=== PATIENT | male | born 1945 | race Caucasian/White ===

== ENCOUNTER 2018-08-10 12:57 | Outpatient (CLI) | payer MEDICARE ==
--- NOTE | 2018-08-10 15:32 | ULT ---
ULTRASOUND RETROPERITONEUM COMPLETE: (RENAL) DATE: 08/10/2018. HISTORY: A 73-year-old male with: R35.1, nocturia. N40.0, benign prostatic hyperplasia, unspecified whether lower urinary tract symptoms present. Z87.442, history of kidney stones. FINDINGS: The right kidney measures 11 x 6.5 x 6 cm. The left kidney measures 11 x 5.5 x 6.5 cm. Both kidneys have normal cortical thickness and normal cortical echogenicity. There is no hydronephrosis. Curso ry images of the urinary bladder demonstrate no gross abnormality. There is a 1.2 cm round parenchym al cyst at the lower pole parenchyma of the left kidney. Prostate gland measures approximately 5.2 x 2.7 x 3.8 cm. It does not indent the bladder base. Bladder volume is 85 mL at the time of this scan . IMPRESSION: 1. Small left renal cyst. 2. No other abnormalities of the kidneys identified. shayna [] POS: IGNACIA
== END 2018-08-10 12:58 | disposition home or self-care (01) ==
LOC: BICULT 12:57
PROVIDERS: ATTEND Urology
DX: N40.0 Benign prostatic hyperplasia without lower urinary tract symptoms (principal); R35.1 Nocturia; N28.1 Cyst of kidney, acquired; Z87.442 Personal history of urinary calculi
CPT/HCPCS: 76770

== ENCOUNTER 2019-06-24 13:20 | Outpatient (CLI) | payer MEDICARE ==
--- NOTE | 2019-06-24 13:40 | RAD ---
XR Chest Pa Lat STANDARD HISTORY: Cough and wheezing COMPARISON: 05/18/2017 FINDINGS: The heart size is normal. The lungs are well expanded without focal areas of consolidation, pneumothorax or pleural effusions. IMPRESSION: No radiographic evidence of acute cardiopulmonary process.
== END 2019-06-24 13:21 | disposition home or self-care (01) ==
LOC: BICRAD 13:20
PROVIDERS: ATTEND Internal Medicine
DX: R05 Cough (principal)
CPT/HCPCS: 71046

== ENCOUNTER 2020-06-16 06:34 | Outpatient (CLI) | payer MEDICARE ==
[2020-06-16 11:48] LABS: Hemoglobin 14.8 g/dL (14.0-18.0); Mean Corpuscular HGB CONC 33.5 G/DL (32.0-36.0); Mean Corpuscular Hemoglobin 31.6 PG (27.0-33.0); Mean Corpuscular Volume 94.4 fl (80.0-100.0); Mean Platelet Volume 10.3 fl (7.4-10.4); Platelet Count 262 10x3/uL (130-400); Red Blood Cell (RBC) Count 4.68 10x6/uL (4.40-5.80); White Blood Cell (WBC) Count 7.9 10x3/uL (4.5-11.0)
[2020-06-16 11:56] LABS: Bilirubin Neg (Negative); Blood, Urine Negative (Negative); Clarity Clear (Clear); Glucose, Urine (Dipstick) Normal (Negative); Ketone, Urine Negative (Negative); Leukocyte Negative (Negative); Nitrite Negative (Negative); Protein, Urine (Dipstick) Negative (Neg-Trace); Urobilinogen Normal mg/dL (Less than 2); pH, Urine 6.5 (5.0-9.0)
[2020-06-16 12:11] LABS: INR-International Normal Ratio 1.1; PTT 30.2 sec (22.0-33.0); Prothrombin Time 11.3 sec (9.5-12.1)
[2020-06-16 12:21] LABS: Anion Gap 15 mmol/L (10-20); BUN (Urea Nitrogen) 21 mg/dL (8.4-25.7); Calc. Creatinine Clearance 0 mL/min (70-130); Calcium 9.5 mg/dL (7.8-10.44); Carbon Dioxide 29 mmol/L (23-31); Chloride 102 mmol/L (98-107); Glucose 79 mg/dL (83-110); Potassium 4.5 mmol/L (3.5-5.1); Sodium 141 mmol/L (136-145)
[2020-06-16 12:37] LABS: RBC/HPF None Seen HPF (0-3); WBC/HPF None Seen HPF (0-3)
[2020-06-16 12:38] LABS: Bacteria/HPF None Seen HPF (None Seen); Squamous Epithelial 0-3 HPF (0-3)
--- NOTE | 2020-06-16 16:15 | EKG ---
Test Reason : Blood Pressure : / mmHG Vent. Rate : 073 BPM Atrial Rate : 073 BPM P-R Int : 152 ms QRS Dur : 094 ms QT Int : 362 ms P-R-T Axes : 062 070 -11 degrees QTc Int : 398 ms Normal sinus rhythm Incomplete right bundle branch block Minimal voltage criteria for LVH, may be normal variant Nonspecific T wave abnormality Abnormal ECG No previous ECGs available Confirmed by DR. Petra ANDERSON ([id number]) on 06/16/2020 4:15:09 PM Referred By: Joni GUNTER, Confirmed By:DR. Petra ANDERSON
[2020-06-16 17:12] LABS: SARS-CoV-2 MS2 Positive; SARS-CoV-2 N Gene Negative; SARS-CoV-2 S Gene Negative; SARS-CoV-2 by NAA Not Detected (NotDetected); SARS-CoV-2 orf1ab Negative
== END 2020-06-16 06:35 | disposition home or self-care (01) ==
LOC: LABBT 06:34
PROVIDERS: ATTEND Urology
DX: Z01.812 Encounter for preprocedural laboratory examination (principal); Z12.5 Encounter for screening for malignant neoplasm of prostate; R35.1 Nocturia; N40.0 Benign prostatic hyperplasia without lower urinary tract symptoms; N35.814 Other anterior urethral stricture, male; Z90.79 Acquired absence of other genital organ(s)
CPT/HCPCS: 80048; 81001; 85027; 85610; 85730; 87086; 93005; G0103; U0003; 87635; 93010

== ENCOUNTER 2020-06-21 07:15 | Day surgery (SDC) | payer MEDICARE ==
[2020-06-20 12:04] VITALS: BMI 24.3
[2020-06-21] MEDS ORDERED: Fentanyl 100 MCG/2 ML VIAL ONE (08:09)
[2020-06-21] MEDS ORDERED: PROPOFOL 200 MG/20 ML VIAL ONE (08:49)
[2020-06-21] MEDS ORDERED: Lidocaine 1% PF 5 ML VIAL ONE (08:49)
[2020-06-21] MEDS ORDERED: Levofloxacin 500 mg/D5W 100 ml Premix Bag ONE (08:57)
[2020-06-21] MEDS ORDERED: Iothalamate Meglumine 60% 50 ML VIAL FS ONE (09:12)
[2020-06-21] MEDS ORDERED: Phenazopyridine HCl 100 MG TAB ONE (10:43)
[2020-06-21] MEDS ORDERED: Oxybutynin 5 MG TAB ONE (10:43)
--- NOTE | 2020-06-21 11:33 | OP ---
DATE OF PROCEDURE: 06/21/2020 PREOPERATIVE DIAGNOSES: 1. A 75-year-old male with history of benign prostatic hyperplasia, status post transurethral resection of the prostate in 1977. 2. 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 POSTOPERATIVE DIAGNOSES: 1. A 75-year-old male with history of benign prostatic hyperplasia, status post transurethral resection of the prostate in 1977. 2. 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 PROCEDURES PERFORMED: Cystoscopy, retrograde urethrogram, direct vision internal urethrotomy, 18-Estonian Gurrola catheter placement over guidewire assist, UroLift implant x4. ANESTHESIA: TIVA. COMPLICATIONS: None apparent. DISPOSITION: To recovery room in stable condition. INDICATIONS FOR PROCEDURE AND HISTORY: Mr. Teran is a 75-year-old male, whom I initially saw back few years ago. The patient has had TURP in the remote past, by his personal friend. cystoscopy due to BPH symptoms, demonstrated proximal penile urethral stricture, which I recommended treatment. He has subsequently failed to see me, and recently presented as he desired to proceed with BPH surgical intervention as he was seeking UroLift. He underwent staged cystoscopy, demonstrating stable stricture, and I informed him that pending cystoscopic evaluation, if he needs UroLift implant ie if residual obstructing lobes, we will certainly proceed. Indications for DVIU, UroLift implant has been fully discussed with him in detail. Options of observation and TURP were discussed with him in detail and he desired to proceed without reservation. DESCRIPTION OF PROCEDURE: After an informed consent was signed, the patient was taken to the operating room, placed in a dorsal lithotomy position with the genital area prepped and draped in the usual surgical sterile fashion. We first performed a retrograde urethrogram with a 16-Estonian Gurrola catheter, which demonstrated a discrete area of mid penile urethral stricture. This appeared to be focal in one location, discrete. I was able to easily opacify the urethra to the level of the bladder. We then subsequently transitioned him to a dorsal lithotomy position and again repeated the genital prep. A 21-Estonian cystoscope was utilized and we were able to visualize the stricture, which was about 10-Estonian caliber and a 0.035 Sensor wire was placed to the level of the bladder, confirmed on fluoroscopy. I gently tried to pass the cystoscope to passive dilatation, however, it appeared to be too dense. Therefore, we transitioned to a DVIU scope, and we performed a direct vision internal urethrotomy, making an incision at 12 o'clock. This released the stricture and I was able to pass the scope without significant issues. Prostatic urethra was staged demonstrating an open bladder neck with no evidence of bladder neck contracture. There was, however, residual mid-glandular obstructing lateral lobe. The bladder was entered, which demonstrated degree of trabeculation. The UOs are about 2 to 3 mm proximal to the bladder neck with no evidence of bladder calculi or tumor of concern. At this time, we transitioned to the UroLift cystoscope device with a visual obturator. Once we were in the bladder, the wire was removed. We staged the prostatic urethra again, and total of four implants were put in, we did not need to treat the bladder neck, as it was open. A total of four implants, two on each lobes were performed. Stacking maneuver was performed at the mid gland. 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 However, at the end of the procedure, he had a wide open bladder neck with no evidence of residual obstructing lobe of concern. An 18-Estonian Gurrola catheter was attempted to be passed. However, there was some resistance of the prostatic urethra likely due to a high median bar component, deviated bladder neck from a previous TUR. Therefore, we replaced the wire to the level of the bladder and an 18-Estonian Gurrola catheter was placed to the level of the bladder with guidewire assist. There was no issues passing the catheter to the level of the penile urethral stricture that was recently treated. A 30 mL was insufflated. CBI port was plugged and catheter attached to leg bag. He will follow up with me next , for catheter removal, voiding trial. Job ID: [id number] MTDD
--- NOTE | 2020-06-21 11:34 | RAD ---
Retrograde urethrogram: 06/21/2020 HISTORY: "Stent placement" FINDINGS: 10 images from a retrograde urethrogram performed by Dr. Arroyo provided for interpreta tion. These images demonstrate a stricture of the penile urethra, best seen on image 6 of 10. Contrast media is seen within the urinary bladder. IMPRESSION: Urethral stricture.
[2020-06-21] MEDS ORDERED: Morphine 2 MG/ML VIAL ONE (12:28)
[2020-06-21] MEDS ORDERED: HYDROcodone/Acetaminophen 5/325 mg Tablet ONE (12:28)
== END 2020-06-21 12:10 | disposition home or self-care (01) ==
LOC: SDC 07:15
PROVIDERS: ATTEND Urology
PROC: 0T7D8DZ Dilation of Urethra with Intraluminal Device, Via Natural or Artificial Opening Endoscopic (ICD-10-PCS; principal; 2020-06-21)
PROC: 0TND8ZZ Release Urethra, Via Natural or Artificial Opening Endoscopic (ICD-10-PCS; 2020-06-21)
DX: N40.1 Benign prostatic hyperplasia with lower urinary tract symptoms (principal); R35.1 Nocturia; N35.814 Other anterior urethral stricture, male; E78.5 Hyperlipidemia, unspecified; J45.909 Unspecified asthma, uncomplicated; I10 Essential (primary) hypertension; M19.041 Primary osteoarthritis, right hand; M19.042 Primary osteoarthritis, left hand; Z79.899 Other long term (current) drug therapy
CPT/HCPCS: 52276; 74420; C1889; C9740; J2270; J1956; J2704; J3010

== ENCOUNTER 2020-09-14 13:46 | Outpatient (CLI) | payer MEDICARE ==
[~2020-09-14 13:46] MED LIST: Iopamidol 370 76% 100 ML VIAL ONE
== END 2020-09-14 13:47 | disposition home or self-care (01) ==
LOC: BICCT 13:46
PROVIDERS: ATTEND Internal Medicine
DX: R05 Cough (principal)
CPT/HCPCS: 71260; 82565; Q9967

== ENCOUNTER 2020-10-11 08:43 | Outpatient (CLI) | payer MEDICARE | END 2020-10-11 08:44 | disposition home or self-care (01) | LOC: RAD 08:43 | PROVIDERS: ATTEND Internal Medicine | DX: R13.11 Dysphagia, oral phase (principal); R63.3 Feeding difficulties; K21.9 Gastro-esophageal reflux disease without esophagitis | CPT/HCPCS: 74230 ==

== ENCOUNTER 2021-03-23 09:59 | Outpatient (CLI) | payer MEDICARE ==
[2020-10-10 04:51] LABS: SARS-CoV-2 PCR by NAA Not Detected (NotDetected)
[2021-03-23 10:58] LABS: Bilirubin Neg (Negative); Blood, Urine Negative (Negative); Clarity Clear (Clear); Glucose, Urine (Dipstick) Normal (Negative); Ketone, Urine Negative (Negative); Leukocyte Negative (Negative); Nitrite Negative (Negative); Protein, Urine (Dipstick) Negative (Neg-Trace); Urobilinogen Normal mg/dL (Less than 2); pH, Urine 6.5 (5.0-9.0)
[2021-03-23 11:28] LABS: Bacteria/HPF None Seen HPF (None Seen); RBC/HPF 0-3 HPF (0-3); WBC/HPF 0-3 HPF (0-3)
[2021-03-23 12:25] LABS: Hemoglobin 14.2 g/dL (13.5-17.5); Mean Corpuscular HGB CONC 32.9 g/dL (32.0-36.0); Mean Corpuscular Hemoglobin 31.5 pg (27.0-33.0); Mean Corpuscular Volume 95.8 fl (81.2-95.1); Platelet Count 271 10x3/uL (150-450); RBC Distribution Width 13.2 % (11.5-14.5); Red Blood Cell (RBC) Count 4.51 10x6/uL (4.32-5.72); White Blood Cell (WBC) Count 7.5 10x3/uL (3.5-10.5)
[2021-03-23 12:36] LABS: Anion Gap 15 mmol/L (10-20); BUN (Urea Nitrogen) 18 mg/dL (8.4-25.7); Carbon Dioxide 26 mmol/L (23-31); Chloride 103 mmol/L (98-107); Sodium 139 mmol/L (136-145)
[2021-03-23 12:37] LABS: Calc. Creatinine Clearance 0 mL/min (70-130); Glucose 80 mg/dL (83-110)
[2021-03-23 12:41] LABS: PTT 29.7 sec (22.0-33.0); Prothrombin Time 11.5 sec (9.5-12.1)
[2021-03-24 00:07] LABS: SARS-CoV-2 PCR by NAA DETECTED (NotDetected)
== END 2021-03-23 10:00 | disposition home or self-care (01) ==
LOC: LABBT 09:59
PROVIDERS: ATTEND Internal Medicine
DX: Z01.818 Encounter for other preprocedural examination (principal); U07.1 COVID-19; N40.0 Benign prostatic hyperplasia without lower urinary tract symptoms
CPT/HCPCS: 80048; 81001; 85027; 85610; 85730; 87086; 93005; U0003 ×2; U0005 ×2; 93010

== ENCOUNTER 2021-05-16 08:20 | Outpatient (CLI) | payer MEDICARE ==
[2021-05-16 09:07] LABS: Bilirubin Neg (Negative); Blood, Urine Negative (Negative); Clarity Clear (Clear); Glucose, Urine (Dipstick) Normal (Negative); Hemoglobin 14.4 g/dL (13.5-17.5); Ketone, Urine Negative (Negative); Leukocyte Negative (Negative); Mean Corpuscular HGB CONC 32.4 g/dL (32.0-36.0); Mean Corpuscular Hemoglobin 30.8 pg (27.0-33.0); Mean Corpuscular Volume 95.3 fl (81.2-95.1); Mean Platelet Volume 9.5 fl (7.4-10.4); Nitrite Negative (Negative); Platelet Count 241 10x3/uL (150-450); Protein, Urine (Dipstick) Negative (Neg-Trace); RBC Distribution Width 13.2 % (11.5-14.5); Red Blood Cell (RBC) Count 4.67 10x6/uL (4.32-5.72); Specific Gravity, Urine 1.005 (1.002-1.036); Urobilinogen Normal mg/dL (Less than 2); White Blood Cell (WBC) Count 7.1 10x3/uL (3.5-10.5)
[2021-05-16 09:18] LABS: PTT 28.5 sec (22.0-33.0); Prothrombin Time 11.3 sec (9.5-12.1)
[2021-05-16 09:24] LABS: Bacteria/HPF None Seen HPF (None Seen); RBC/HPF None Seen HPF (0-3); Squamous Epithelial 0-3 HPF (0-3); WBC/HPF 0-3 HPF (0-3)
[2021-05-16 09:40] LABS: Anion Gap 15 mmol/L (10-20); BUN (Urea Nitrogen) 15 mg/dL (8.4-25.7); Calc. Creatinine Clearance 0 mL/min (70-130); Calcium 9.5 mg/dL (7.8-10.44); Carbon Dioxide 28 mmol/L (23-31); Chloride 103 mmol/L (98-107); Glucose 106 mg/dL (83-110); Potassium 4.5 mmol/L (3.5-5.1); Sodium 141 mmol/L (136-145)
== END 2021-05-16 08:21 | disposition home or self-care (01) ==
LOC: LABBT 08:20
PROVIDERS: ATTEND Urology
DX: Z01.818 Encounter for other preprocedural examination (principal); N40.0 Benign prostatic hyperplasia without lower urinary tract symptoms
CPT/HCPCS: 80048; 81001; 85027; 85610; 85730; 87086

== ENCOUNTER 2021-05-23 06:08 | Day surgery (SDC) | payer MEDICARE ==
[2021-05-22 09:55] VITALS: BMI 24.3
[2021-05-23] MEDS ORDERED: Levofloxacin 500 mg/D5W 100 ml Premix Bag ONE (06:23)
[2021-05-23] MEDS ORDERED: Fentanyl 100 MCG/2 ML VIAL ONE (07:07)
[2021-05-23] MEDS ORDERED: Iothalamate Meglumine 60% 50 ML VIAL FS ONE (07:15)
[2021-05-23] MEDS ORDERED: ePHEDrine 50 MG/ML VIAL ONE (07:21)
[2021-05-23] MEDS ORDERED: Lidocaine 1% PF 5 ML VIAL ONE (07:21)
[2021-05-23] MEDS ORDERED: PROPOFOL 200 MG/20 ML VIAL ONE (07:21)
[2021-05-23] MEDS ORDERED: Dexamethasone 20 MG/5 ML VIAL ONE (07:21)
[2021-05-23] MEDS ORDERED: Ondansetron PF 4 MG/2 ML Vial ONE (07:21)
[2021-05-23] MEDS ORDERED: Oxybutynin 5 MG TAB ONE (08:12)
[2021-05-23] MEDS ORDERED: Tamsulosin HCl 0.4 MG CAP ONE (08:12)
[2021-05-23] MEDS ORDERED: Phenazopyridine HCl 100 MG TAB ONE (08:18)
== END 2021-05-23 09:40 | disposition home or self-care (01) ==
LOC: SDC 06:08
PROVIDERS: ATTEND Urology
PROC: 0TND8ZZ Release Urethra, Via Natural or Artificial Opening Endoscopic (ICD-10-PCS; principal; 2021-05-23)
DX: N35.919 Unspecified urethral stricture, male, unspecified site (principal); N40.0 Benign prostatic hyperplasia without lower urinary tract symptoms; Z79.899 Other long term (current) drug therapy; Z98.890 Other specified postprocedural states
CPT/HCPCS: 52276; 74420; Q9961; J1100; J1956; J2405; J2704; J3010; J3490

== ENCOUNTER 2021-07-30 11:01 | Outpatient (CLI) | payer MEDICARE | END 2021-07-30 11:02 | disposition home or self-care (01) | LOC: CT 11:01 | PROVIDERS: ATTEND Internal Medicine | DX: R10.31 Right lower quadrant pain (principal); K57.30 Diverticulosis of large intestine without perforation or abscess without bleeding | CPT/HCPCS: 74177; 82565 ==

== ENCOUNTER 2021-08-23 11:58 | Outpatient (CLI) | payer MEDICARE | END 2021-08-23 11:59 | disposition home or self-care (01) | LOC: BICRAD 11:58 | PROVIDERS: ATTEND Internal Medicine | DX: M54.50 Low back pain, unspecified (principal); R10.31 Right lower quadrant pain; M47.816 Spondylosis without myelopathy or radiculopathy, lumbar region | CPT/HCPCS: 72100 ==

== ENCOUNTER 2021-09-28 10:20 | Day surgery (SDC) | payer MEDICARE ==
[2021-09-26 08:48] VITALS: BMI 24.3
[2021-09-28] MEDS ORDERED: Ketorolac Tromethamine 30 MG/ML VIAL ONE (10:33)
[2021-09-28] MEDS ORDERED: Acetaminophen 500 MG TAB ONE (10:33)
[2021-09-28] MEDS ORDERED: Bupivacaine 0.25% 10 ML VIAL ONE ×2 (11:39→11:40)
[2021-09-28] MEDS ORDERED: Lidocaine 1% w/Epinephrine 1:100K 30 ML VIAL ONE (11:40)
[2021-09-28] MEDS ORDERED: ceFAZolin 2 GM/Dextrose 50 ML IVPB ONE (11:51)
[2021-09-28] MEDS ORDERED: SUGAMMADEX SODIUM 200 MG/2 ML VIAL ONE (13:33)
== END 2021-09-28 16:30 | disposition home or self-care (01) ==
LOC: SDC 10:20
PROVIDERS: ATTEND Specialist
PROC: 0YU54JZ Supplement Right Inguinal Region with Synthetic Substitute, Percutaneous Endoscopic Approach (ICD-10-PCS; principal; 2021-09-28)
DX: K40.90 Unilateral inguinal hernia, without obstruction or gangrene, not specified as recurrent (principal); E78.5 Hyperlipidemia, unspecified; J45.909 Unspecified asthma, uncomplicated; I10 Essential (primary) hypertension; Z79.899 Other long term (current) drug therapy
CPT/HCPCS: 49650; C1781; J0690; J1885; S0020

== ENCOUNTER 2022-08-29 10:34 | Outpatient (CLI) | payer MEDICARE | END 2022-08-29 10:35 | disposition home or self-care (01) | LOC: RAD 10:34 | PROVIDERS: ATTEND Internal Medicine | DX: M79.644 Pain in right finger(s) (principal); M19.041 Primary osteoarthritis, right hand ==

== ENCOUNTER 2023-04-23 14:40 | Outpatient (CLI) | payer OTHER ==
[~2023-04-23 14:40] MED LIST changes: +GASTROGRAFIN 30 ML BOT ONE
== END 2023-04-23 14:41 | disposition home or self-care (01) ==
LOC: CT 14:40
PROVIDERS: ATTEND Internal Medicine
DX: K57.92 Diverticulitis of intestine, part unspecified, without perforation or abscess without bleeding (principal); K63.89 Other specified diseases of intestine
CPT/HCPCS: 36415; 74177; 80053; 85025; 86140; Q9963; Q9967

== ENCOUNTER 2023-05-23 07:48 | Outpatient (CLI) | payer OTHER | END 2023-05-23 07:49 | disposition home or self-care (01) | LOC: BICMRI 07:48 | PROVIDERS: ATTEND Surgery | DX: M50.122 Cervical disc disorder at C5-C6 level with radiculopathy (principal); M47.22 Other spondylosis with radiculopathy, cervical region; M47.813 Spondylosis without myelopathy or radiculopathy, cervicothoracic region; M53.2X2 Spinal instabilities, cervical region | CPT/HCPCS: 72050; 72141 ==

== ENCOUNTER 2023-08-13 08:31 | Inpatient (IN) | payer OTHER ==
[2023-08-13 08:53] LABS: #Basophils 0.1 thou/uL (0.0-0.2); #Eosinphils 0.3 thou/uL (0.0-0.7); #Monocytes 0.8 thou/uL (0.11-0.59); #Neutrophils 6.4 thou/uL (1.40-6.50); %Basophils 0.6 % (0.0-1.0); %Eosinophils 2.9 % (0.0-10.0); %Lymphocytes 21.5 % (21.0-51.0); %Monocytes 7.8 % (0.0-10.0); %Neutrophils 66.9 % (42.0-75.0); Hematocrit 43.5 % (42.0-52.0); Hemoglobin 14.3 g/dL (14.0-18.0); Mean Corpuscular HGB CONC 32.9 g/dL (32.0-36.0); Mean Corpuscular Hemoglobin 31.4 pg (27.0-31.0); Mean Corpuscular Volume 95.6 fl (78.0-98.0); Mean Platelet Volume 9.5 fL (7.4-10.4); Platelet Count 241 10x3/uL (130-400); RBC Distribution Width 14.6 % (11.5-14.5); Red Blood Cell (RBC) Count 4.55 mill/uL (4.70-6.10); White Blood Cell (WBC) Count 9.6 10x3/uL (4.8-10.8)
[2023-08-13 09:15] LABS: ALT (SGPT) 27 U/L (8-55); AST (SGOT) 31 U/L (5-34); Albumin 4.4 g/dL (3.4-4.8); Alkaline Phosphatase 77 U/L (40-110); Anion Gap 11 mmol/L (10-20); BUN (Urea Nitrogen) 14 mg/dL (8.4-25.7); Calc. Creatinine Clearance 0 mL/min (70-130); Calcium 9.5 mg/dL (7.8-10.44); Carbon Dioxide 27 mmol/L (23-31); Chloride 105 mmol/L (98-107); Estimated GFR 61; Globulin 3.3 g/dL (2.4-3.5); Glucose 110 mg/dL (83-110); Potassium 4.2 mmol/L (3.5-5.1); Protein, Total 7.7 g/dL (5.8-8.1); Sodium 139 mmol/L (136-145)
[2023-08-13 09:18] LABS: Troponin I 0.015 ng/mL (< 0.028)
[2023-08-13] MEDS ORDERED: Iopamidol-370 76% 500 ML MDV (1 ML CHARGE) ONE (09:40)
[2023-08-13] MEDS ORDERED: Furosemide 20 MG (2 mL) VIAL ONE (11:24)
[2023-08-13] MEDS ORDERED: dilTIAZem 125 MG/25 ML SDV ONE (11:25)
[2023-08-13] MEDS ORDERED: Acetaminophen 325 MG TAB PO PRN (11:44)
[2023-08-13] MEDS ORDERED: Senokot S 8.6-50 MG TAB PO PRN ×2 (11:44→13:00)
[2023-08-13] MEDS ORDERED: Calcium Carbonate 500 MG ChewTAB PO PRN (11:44)
[2023-08-13] MEDS ORDERED: Ondansetron PF 4 MG/2 ML Vial IVP PRN (11:44)
[2023-08-13] MEDS ORDERED: Guaifenesin DM 100-10/5 ML UDCUP PO PRN (11:44)
[2023-08-13] MEDS ORDERED: dilTIAZem 125 MG in Sodium Chloride 0.9% 100 ML IVPB SCH (12:00)
[2023-08-13 12:26] LABS: Troponin I 0.016 ng/mL (< 0.028)
[2023-08-13 14:29] VITALS: BMI 23.9
[2023-08-13 15:16] LABS: Troponin I 0.014 ng/mL (< 0.028)
[2023-08-13] MEDS: Mometasone 100 MCG/Formoterol 5 MCG 120 PUFF INHALER INH SCH (19:51)
[2023-08-13] MEDS: Apixaban 5 MG TAB PO SCH (21:24)
[2023-08-14 05:39] LABS: #Eosinphils 0.2 thou/uL (0.0-0.7); #Neutrophils 5.3 thou/uL (1.40-6.50); %Basophils 0.5 % (0.0-1.0); %Eosinophils 2.2 % (0.0-10.0); %Neutrophils 62.8 % (42.0-75.0); Hemoglobin 11.9 g/dL (14.0-18.0); Mean Corpuscular HGB CONC 33.1 g/dL (32.0-36.0); Mean Corpuscular Hemoglobin 31.2 pg (27.0-31.0); Mean Corpuscular Volume 94.2 fl (78.0-98.0); Mean Platelet Volume 10.2 fL (7.4-10.4); Platelet Count 204 10x3/uL (130-400); RBC Distribution Width 14.9 % (11.5-14.5); Red Blood Cell (RBC) Count 3.82 mill/uL (4.70-6.10); White Blood Cell (WBC) Count 8.5 10x3/uL (4.8-10.8)
[2023-08-14 06:00] LABS: Anion Gap 12 mmol/L (10-20); BUN (Urea Nitrogen) 11 mg/dL (8.4-25.7); Calc. Creatinine Clearance 57 mL/min (70-130); Calcium 8.7 mg/dL (7.8-10.44); Carbon Dioxide 27 mmol/L (23-31); Chloride 104 mmol/L (98-107); Estimated GFR 65; Glucose 95 mg/dL (83-110); Potassium 3.8 mmol/L (3.5-5.1); Sodium 139 mmol/L (136-145)
[2023-08-14] MEDS: Mometasone 100 MCG/Formoterol 5 MCG 120 PUFF INHALER INH SCH ×2 (06:47→19:40)
[2023-08-14] MEDS ORDERED: Furosemide 40 MG (4 mL) VIAL IVP SCH (07:15)
[2023-08-14] MEDS: Apixaban 5 MG TAB PO SCH ×2 (08:46→20:42)
[2023-08-14] MEDS: Tamsulosin HCl 0.4 MG CAP PO SCH (08:46)
[2023-08-14] MEDS: Rosuvastatin 10 MG TAB PO SCH (08:46)
[2023-08-14] MEDS: Multivitamin W/ Minerals 1 TAB PO SCH (08:46)
[2023-08-15 04:49] LABS: #Basophils 0.1 thou/uL (0.0-0.2); #Eosinphils 0.2 thou/uL (0.0-0.7); #Monocytes 0.9 thou/uL (0.11-0.59); #Neutrophils 4.6 thou/uL (1.40-6.50); %Basophils 0.7 % (0.0-1.0); %Eosinophils 3.1 % (0.0-10.0); %Lymphocytes 23.8 % (21.0-51.0); %Monocytes 11.7 % (0.0-10.0); %Neutrophils 60.3 % (42.0-75.0); Hematocrit 36.1 % (42.0-52.0); Mean Corpuscular HGB CONC 33.2 g/dL (32.0-36.0); Mean Corpuscular Hemoglobin 31.7 pg (27.0-31.0); Mean Corpuscular Volume 95.3 fl (78.0-98.0); Mean Platelet Volume 9.8 fL (7.4-10.4); Platelet Count 205 10x3/uL (130-400); RBC Distribution Width 14.6 % (11.5-14.5); Red Blood Cell (RBC) Count 3.79 mill/uL (4.70-6.10); White Blood Cell (WBC) Count 7.7 10x3/uL (4.8-10.8)
[2023-08-15 05:15] LABS: Anion Gap 10 mmol/L (10-20); BUN (Urea Nitrogen) 14 mg/dL (8.4-25.7); Calc. Creatinine Clearance 64 mL/min (70-130); Calcium 8.9 mg/dL (7.8-10.44); Carbon Dioxide 29 mmol/L (23-31); Chloride 105 mmol/L (98-107); Estimated GFR 74; Glucose 103 mg/dL (83-110); Potassium 3.9 mmol/L (3.5-5.1); Sodium 140 mmol/L (136-145)
[2023-08-15] MEDS: Mometasone 100 MCG/Formoterol 5 MCG 120 PUFF INHALER INH SCH (06:51)
[2023-08-15] MEDS: Rosuvastatin 10 MG TAB PO SCH (08:09)
[2023-08-15] MEDS: Tamsulosin HCl 0.4 MG CAP PO SCH (08:09)
[2023-08-15] MEDS: Multivitamin W/ Minerals 1 TAB PO SCH (08:09)
[2023-08-15] MEDS ORDERED: Heparin 10,000 UNITS/ 10 ML VIAL ONE (10:21)
[2023-08-15] MEDS ORDERED: Isoproterenol 0.2 MG/1 ML AMP ONE (10:22)
[2023-08-15] MEDS ORDERED: Ondansetron HCl/PF 4 MG/2 ML Vial IVP PRN (11:28)
[2023-08-15] MEDS ORDERED: Promethazine HCl 25 MG/ML VIAL IM PRN (11:28)
[2023-08-15] MEDS ORDERED: fentaNYL 50 mcg/mL 1 mL Vial ONE (11:34)
[2023-08-15] MEDS ORDERED: PHENYLEPHRINE-NS 100 MCG/ML 10 ML SYRINGE ONE (11:43)
[2023-08-15] MEDS ORDERED: Dexamethasone 20 MG/5 ML VIAL ONE (11:43)
[2023-08-15] MEDS ORDERED: PROPOFOL 200 MG/20 ML VIAL ONE (11:43)
[2023-08-15] MEDS ORDERED: Lidocaine 1% PF 5 ML VIAL ONE (11:43)
[2023-08-15] MEDS ORDERED: Rocuronium Bromide 10 MG/ML (10ML VIAL) ONE (11:43)
[2023-08-15] MEDS ORDERED: DOPamine 400 MG/D5W 250 ML 250 ML ONE (12:36)
[2023-08-15] MEDS ORDERED: Acetaminophen 325 MG TAB PO PRN (12:37)
[2023-08-15 12:48] VITALS: BP 120/69; TEMP 98.2
[2023-08-15] MEDS ORDERED: SUGAMMADEX SODIUM 200 MG/2 ML VIAL ONE (12:59)
[2023-08-16] MEDS ORDERED: Apixaban 5 MG TAB PO SCH (09:00)
== END 2023-08-15 16:10 | disposition home or self-care (01) | DRG 274 ==
LOC: ERS 08:31 → ERHOLD 11:34 → 2NO 13:54 → OBSVTOIN 08-14 10:16
PROVIDERS: ADMIT Internal Medicine; ATTEND Family Medicine
PROC: B24BZZ4 Ultrasonography of Heart with Aorta, Transesophageal (ICD-10-PCS; principal; 2023-08-15)
PROC: 02583ZZ Destruction of Conduction Mechanism, Percutaneous Approach (ICD-10-PCS; 2023-08-15)
DX: I48.92 Unspecified atrial flutter (principal); I50.30 Unspecified diastolic (congestive) heart failure; J98.11 Atelectasis; E78.5 Hyperlipidemia, unspecified; I11.0 Hypertensive heart disease with heart failure; J45.909 Unspecified asthma, uncomplicated; Z79.01 Long term (current) use of anticoagulants; Z79.899 Other long term (current) drug therapy; Z98.890 Other specified postprocedural states
CPT/HCPCS: 36415; 71045; 71275; 80048; 80053; 83880; 84484; 85025; 85379; 93005; 93312; 93653; 94664; 96365; 96366; 96375; C1730; C1732; C1760; C1894; G0378; J1100; J1265; J1644; J1940; J2704; J3010; J3490; Q9967

== ENCOUNTER 2025-07-11 05:28 | Emergency (ER) | payer OTHER ==
[2025-07-11 07:01] LABS: #Basophils 0.07 10x3/uL (0.0-0.2); #Eosinophils 0.13 10x3/uL (0.0-0.7); #Monocytes 0.77 10x3/uL (0.11-0.59); #Neutrophils 5.21 10x3/uL (1.40-6.50); %Basophils 1.0 % (0.0-1.0); %Eosinophils 1.9 % (0.0-10.0); %Lymphocytes 8.4 % (21.0-51.0); %Monocytes 11.4 % (0.0-10.0); %Neutrophils 77.0 % (42.0-75.0); Hematocrit 42.1 % (42.0-52.0); Hemoglobin 14.4 g/dL (14.0-18.0); Mean Corpuscular Hemoglobin 31.0 pg (27.0-31.0); Mean Corpuscular Volume 90.7 fL (78.0-98.0); Platelet Count 209 10x3/uL (130-400); Red Blood Cell (RBC) Count 4.64 mill/uL (4.70-6.10); White Blood Cell (WBC) Count 6.77 10x3/uL (4.8-10.8)
[2025-07-11 07:22] LABS: ALT (SGPT) 27 U/L (Less than 45); AST (SGOT) 46 U/L (11-34); Albumin 3.9 g/dL (3.1-4.5); Alkaline Phosphatase 71 U/L (40-110); Anion Gap 12 mmol/L (10-20); BUN (Urea Nitrogen) 10 mg/dL (8.4-25.7); Bilirubin, Total 0.6 mg/dL (0.3-1.2); Calc. Creatinine Clearance 0 mL/min (70-130); Calcium 9.0 mg/dL (7.8-10.44); Carbon Dioxide 27 mmol/L (23-31); Chloride 104 mmol/L (98-107); Globulin 3.4 g/dL (2.4-3.5); Glucose 118 mg/dL (83-110); Potassium 4.1 mmol/L (3.5-5.1); Sodium 139 mmol/L (136-145)
== END 2025-07-11 08:06 | disposition home or self-care (01) ==
LOC: ERS 05:28
DX: J10.1 Influenza due to other identified influenza virus with other respiratory manifestations (principal); I10 Essential (primary) hypertension; E78.5 Hyperlipidemia, unspecified
CPT/HCPCS: 71045; 80053; 83880; 84484; 85025; 87081; 87428; 87430; 93005